=== PATIENT | male | born 1975 | race Caucasian/White ===

== ENCOUNTER 2018-11-08 05:42 | Observation (INO) | payer BC ==
[2018-11-07 11:27] LABS: BASOPHILS % (AUTO) 0.6 % (0-1); EOSINOPHILS # (AUTO) 0.1 X10'3 (0-0.9); EOSINOPHILS % (AUTO) 1.5 % (0-6); MEAN CORPUSCULAR HEMOGLOBIN 29.7 PG (27.0-31.0); MEAN CORPUSCULAR HGB CONC 33.4 g/dL (33.0-36.5); MEAN CORPUSCULAR VOLUME 88.7 FL (78-98); MEAN PLATELET VOLUME 9.6 FL (7.4-10.4); MONOCYTES # (AUTO) 0.5 X10'3 (0-0.9); MONOCYTES % (AUTO) 7.8 % (2-12); NEUTROPHILS # (AUTO) 4.2 X10'3 (1.8-7.7); NEUTROPHILS % (AUTO) 61.1 % (42-75); PRE OP HEMATOCRIT 46.2 % (42.0-52.0); PRE OP HEMOGLOBIN 15.5 g/dL (14.0-17.9); PRE OP PLATELET COUNT 248 X10'3 (140-440); RED BLOOD COUNT 5.21 X10'6 (4.70-6.10)
[2018-11-07 11:43] LABS: ALBUMIN 4.4 G/DL (3.4-5.0); BLOOD UREA NITROGEN 14 MG/DL (7-18); BUN/CREATININE RATIO 16.5 (5.4-32.0); CALCIUM 8.9 MG/DL (8.5-10.1); CHLORIDE 105 MMOL/L (99-107); CREATININE 0.85 MG/DL (0.60-1.10); PRE OP ANION GAP 10 (8-16); PRE OP GLUCOSE 97 MG/DL (70-104); PRE OP POTASSIUM 4.3 MMOL/L (3.4-5.1); PRE OP SODIUM 143 MMOL/L (135-145); TOTAL CARBON DIOXIDE 28.1 MMOL/L (24-32); eGFR > 90 ML/MIN
[2018-11-07 11:56] LABS: ALBUMIN/GLOBULIN RATIO 1.2 (1.1-1.5); ALKALINE PHOSPHATASE 88 IU/L (46-116); PRE OP ALT 60 U/L (30-65); PRE OP AST 25 U/L (10-37); PRE OP BILIRUB, TOTAL 0.5 MG/DL (0.0-1.0); TOTAL PROTEIN 8.1 G/DL (6.4-8.2)
[~2018-11-08] VITALS: Ht 180.3 cm; Wt 111.1 kg
[2018-11-08] VITALS (18 sets, daily range): BP systolic 91–139; BP diastolic 49–88
[~2018-11-08 05:42] MED LIST: LISI40TA4 PO; TEST5GEL2 TOP; famotidine 20mg tablet PO ONE
[2018-11-08] MEDS: ringers solution, lacted 1,000 ML IV SCH ×2 (06:25→11:40)
[2018-11-08] MEDS ORDERED: BUPIVAcaine/PF 2.5mg/ml (0.25%) 10ml vial ONE (07:39)
[2018-11-08] MEDS ORDERED: sevoflurane 250ml liquid IH ONE (08:32)
[2018-11-08] MEDS ORDERED: MIDAZolam 5mg/5ml vial ONE (08:34)
[2018-11-08] MEDS ORDERED: fentaNYL /PF 50mcg/ml 5ml ampule ONE (08:35)
[2018-11-08] MEDS ORDERED: propofol inj 20 ML IV ONE (08:35)
[2018-11-08] MEDS ORDERED: vancomycin 1,000mg inj ONE (08:49)
[2018-11-08] MEDS ORDERED: ceFAZolin 1000mg inj ONE ×2 (08:55)
[2018-11-08] MEDS ORDERED: morphine 4 MG/ML inj SYRINge IV PRN ×2 (09:05)
[2018-11-08] MEDS ORDERED: proCHLORperazine 10 MG/2 ml inj IV PRN (09:05)
[2018-11-08] MEDS ORDERED: ondansetron/PF 4mg/2ml inj IV PRN ×2 (09:05→10:05)
[2018-11-08] MEDS ORDERED: ringers solution, lacted 1,000 ML IV SCH (09:05)
[2018-11-08] MEDS ORDERED: meperidine/PF 25mg/ml syringe IV PRN ×3 (09:05)
[2018-11-08] MEDS ORDERED: ketorolac trometh. 30mg/ml inj. ONE (09:34)
[2018-11-08] MEDS ORDERED: ROPIVAcaine 0.5% (5mg/ml) 30ml vial ONE (09:34)
--- NOTE | 2018-11-08 09:53 | NUR ---
Received from OR via , accompanied by Anesthesiologist DR PINON and report given by Anesthesiolgist. RESPONDS TO VOICE. VITALS STABLE. DRESSING DI. ODESSA PAIN.
[2018-11-08] MEDS ORDERED: bisacodyl 10mg suppository rectal RC PRN (10:05)
[2018-11-08] MEDS ORDERED: magnesium hydroxide 30ml (MOM) UD suspension PO PRN (10:05)
[2018-11-08] MEDS ORDERED: HYDROmorphone 1 mg/ml syringe IV PRN (10:05)
[2018-11-08] MEDS ORDERED: HYDROmorphone inj. 0.5 MG/0.5 ML DISP.SYRIN IV PRN (10:05)
[2018-11-08] MEDS ORDERED: oxyCODONE IR 5mg (immed. release) tablet PO PRN (10:05)
[2018-11-08] MEDS ORDERED: acetaminophen 325mg tablet PO PRN (10:05)
[2018-11-08] MEDS ORDERED: diphenhydrAMINE 25mg capsule PO PRN ×2 (10:05)
--- NOTE | 2018-11-08 10:53 | NUR ---
Report called to receiving nurse. Transferred via BED Belongings . Special Issues communicated to receiving nurse. AWAKE AND ORIENTED. VITALS STABLE. DRESSING DI. STATES ONLY MIN DISCOMFORT. TO ORTHO RM 4014B AT THIS TIME.
[2018-11-08] MEDS: oxyCODONE IR 5mg (immed. release) tablet PO PRN ×2 (11:27→19:29)
[2018-11-08] MEDS: potassium cl 20mEq in 1/2 NS 1,000 ML IV SCH ×2 (11:27→18:02)
[2018-11-08] MEDS: acetaminophen 325mg tablet PO SCH ×2 (13:54→19:28)
[2018-11-08] MEDS: ketorolac tromethamine 15mg/ml inj. IV SCH ×2 (13:54→19:28)
[2018-11-08] MEDS: ceFAZolin 1GM/D5W- ADD-VANTAGE 50 ML IV SCH ×2 (16:25→23:52)
--- NOTE | 2018-11-08 18:25 | NUR ---
Report received from Emmie ESPINO, assumed care of patient.
[2018-11-08] MEDS ORDERED: vancomycin/NS 1 GM ADD-VANTAGE 250 ML IV SCH (20:00)
[2018-11-08] MEDS ORDERED: lisinopril 20mg tablet PO SCH (21:00)
[2018-11-08] MEDS ORDERED: sennosides 8.6mg tablet PO SCH (21:00)
[2018-11-09] MEDS: oxyCODONE IR 5mg (immed. release) tablet PO PRN (01:08)
[2018-11-09 02:00] VITALS: BP 135/90
[2018-11-09] MEDS: potassium cl 20mEq in 1/2 NS 1,000 ML IV SCH ×2 (02:02→10:02)
[2018-11-09] MEDS: acetaminophen 325mg tablet PO SCH ×2 (02:05→07:39)
[2018-11-09] MEDS: ketorolac tromethamine 15mg/ml inj. IV SCH ×2 (02:05→07:42)
--- NOTE | 2018-11-09 06:15 | NUR ---
Report given to Musa ESPINO.
--- NOTE | 2018-11-09 06:45 | NUR ---
Patient in room ORTHO 4014. I have received report from Rosa Maria Ellis RN and had the opportunity to ask questions and assume patient care.
[2018-11-09 06:49] VITALS: BP 129/86
[2018-11-09] MEDS ORDERED: ASPI-1 PO (08:07)
[2018-11-09] MEDS ORDERED: CLIN300C70 PO (08:22)
[2018-11-09] MEDS ORDERED: OXYC-150 PO (08:23)
[2018-11-09] MEDS ORDERED: aspirin 325mg tablet PO SCH (08:30)
--- NOTE | 2018-11-09 10:50 | NUR ---
Patient discharged to home with all belongings, IV taken out canula intact, new medications delivered bedside, patient and educated on incision care and weight bearing status
--- NOTE | 2018-11-09 11:42 | NUR ---
Student documentation: I have reviewed all interventions, assessments performed and documented by Waleska Vargas. Student Medication Administration: For this medication-pass time frame, all medication were reviewed, dispensed, administered and documented per hospital policy by Waleska Vargas.
[2018-11-09] MEDS ORDERED: celeCOXIB 100mg capsule PO SCH (20:00)
[2018-11-10] MEDS ORDERED: acetaminophen 325mg tablet PO PRN (10:05)
== END 2018-11-09 10:30 | disposition home or self-care (01) ==
LOC: PAS 05:42 → ORTHO 4S 10:04
PROVIDERS: ADMIT Orthopaedic Surgery; ATTEND Orthopaedic Surgery
DX: T84.59XA Infection and inflammatory reaction due to other internal joint prosthesis, initial encounter (principal); T84.84XS Pain due to internal orthopedic prosthetic devices, implants and grafts, sequela; M86.461 Chronic osteomyelitis with draining sinus, right tibia and fibula; I10 Essential (primary) hypertension; D62 Acute posthemorrhagic anemia; Z87.891 Personal history of nicotine dependence
CPT/HCPCS: 20680; 36415; 80053; 82948; 85025; 87070; 87075; 87102; 87176; 93005; 96365; 96366; 96367; 96375; 96376; 97116; 97161; A6449; G0378; J0690; J1885; J2250; J2704; J3010; J3370; J3490; J7120; A7000; J2795